=== PATIENT | female | born 1980 | race Caucasian/White ===

== ENCOUNTER 2017-03-22 08:33 | Inpatient (IN) | payer OTHER ==
[2017-03-22 09:46] LABS: Hematocrit 28 % (35-47); Mean Corpuscular HGB Conc 32 g/dl (31-36); Mean Corpuscular Hemoglobin 24 pg (27-31); Mean Corpuscular Volume 76 fL (80-97); Mean Platelet Volume 9 um3 (7.4-10.4); Red Blood Count 3.75 10^6/ul (4.0-5.4); Red Cell Distribution Width 17 % (10.5-15); White Blood Count 16.8 10^3/ul (3.5-10.8)
[2017-03-22 09:48] LABS: Add Diff/Slide Review? Slide Review Added; Comments Flag Yes
[2017-03-22] MEDS ORDERED: Nalbuphine* 20 MG/ML 1 ML VIAL ONE (10:01)
[2017-03-22] MEDS ORDERED: fentaNYL* 50 MCG/ML 2 ML VIAL (100 MCG VIAL) ONE ×3 (10:50→17:00)
[2017-03-22] MEDS ORDERED: Acetaminophen TAB* 325 MG PO PRN (13:11)
[2017-03-22] MEDS ORDERED: Glycerin ADULT SUPP PR PRN (13:11)
[2017-03-22] MEDS ORDERED: Dibucaine 1% 28.35 GM TUBE PR PRN (13:11)
[2017-03-22] MEDS ORDERED: Witch Hazel PAD* JAR TOPICAL PRN (13:11)
[2017-03-22] MEDS: Ibuprofen TAB* 600 MG PO PRN ×2 (13:41→19:26)
[2017-03-22] MEDS ORDERED: Oxytocin in LR* 20 UNITS/1,000 ML BAG IVPB ONE (14:00)
[2017-03-22] MEDS ORDERED: OXYTOCIN* 10 UNITS/ML 1 ML VIAL ONE (15:30)
[2017-03-22] MEDS ORDERED: Phenylephrine IV* 40 MCG/ML 10 ML SYRINGE ONE (15:30)
[2017-03-22] MEDS ORDERED: HYDROmorphone* 1 MG/ML 1 ML SYR ONE (17:00)
[2017-03-22] MEDS ORDERED: Simethicone CHEW TAB* 80 MG PO SCH (17:30)
[2017-03-22] MEDS: Docusate CAP* 100 MG PO SCH ×2 (18:03→21:55)
[2017-03-23] MEDS: Ibuprofen TAB* 600 MG PO PRN ×3 (08:05→19:49)
[2017-03-23] MEDS: Ferrous Gluconate TAB* 324 MG TAB PO SCH ×2 (08:05→21:19)
[2017-03-23] MEDS: Docusate CAP* 100 MG PO SCH ×3 (08:05→21:19)
[2017-03-23 08:17] LABS: Hematocrit 25 % (35-47); Hemoglobin 7.9 g/dl (12.0-16.0); Mean Corpuscular HGB Conc 32 g/dl (31-36); Mean Corpuscular Hemoglobin 24 pg (27-31); Mean Corpuscular Volume 76 fL (80-97); Mean Platelet Volume 9 um3 (7.4-10.4); Red Blood Count 3.29 10^6/ul (4.0-5.4); Red Cell Distribution Width 17 % (10.5-15); White Blood Count 17.4 10^3/ul (3.5-10.8)
[2017-03-24 07:51] VITALS: BP 107/62
[2017-03-24] MEDS: Ferrous Gluconate TAB* 324 MG TAB PO SCH (07:52)
[2017-03-24] MEDS: Docusate CAP* 100 MG PO SCH (07:53)
[2017-03-24] MEDS: Ibuprofen TAB* 600 MG PO PRN (07:53)
== END 2017-03-24 14:16 | disposition home or self-care (01) | DRG 775 ==
LOC: MCHOBOUT 08:33 → MCHOB 09:09
PROVIDERS: ADMIT Obstetrics & Gynecology; ATTEND Obstetrics & Gynecology
PROC: 10E0XZZ Delivery of Products of Conception, External Approach (ICD-10-PCS; principal; 2017-03-22)
PROC: 0KQM0ZZ Repair Perineum Muscle, Open Approach (ICD-10-PCS; 2017-03-22)
DX: O48.0 Post-term pregnancy (principal); D64.9 Anemia, unspecified; O70.1 Second degree perineal laceration during delivery; O34.219 Maternal care for unspecified type scar from previous cesarean delivery; O90.81 Anemia of the puerperium; Z3A.40 40 weeks gestation of pregnancy; Z37.0 Single live birth
CPT/HCPCS: 36415; 85025; 86850; 86900; 86901; A9270-GY; J1170; J2300; J2590; J3010